=== PATIENT | female | born 1955 | race American Indian/Alaskan Native ===

== ENCOUNTER 2022-03-19 07:55 | Day surgery (SDC) | payer MEDICARE ==
[~2022-03-19 07:55] MED LIST: SODIUM CHLORIDE 0.9% 1000 ML 1,000 ML IV SCH
[2022-03-19] MEDS ORDERED: propofoL 200 MG/20 ML VIAL IV ONE (09:09)
[2022-03-19] MEDS ORDERED: DEXTROSE 50% IN WATER (25GM) 50 ML SYRINGE IV ONE (10:13)
--- NOTE | 2022-03-19 10:17 | Anesthesia Day of Surgery ---
Anesthesia Day of Surgery - Day of Surgery Patient Examined: Yes Patient H&P Reviewed: Yes Patient is NPO: Yes
--- NOTE | 2022-03-19 10:18 | Anesthesia Consultation ---
Anesthesia Consult and Med Hx Date of service: 03/19/22 - Airway Anesthetic Teeth Evaluation: Good ROM Head & Neck: Adequate Mental/Hyoid Distance: Adequate Mallampati Class: Class II Intubation Access Assessment: Good - Pre-Operative Health Status ASA Pre-Surgery Classification: ASA3 Proposed Anesthetic Plan: MAC - Pulmonary Hx Smoking: No Hx Asthma: No Hx Sleep Apnea: No - Cardiovascular System Hx Hypertension: Yes - Central Nervous System Hx Seizures: No CVA: No Hx Psychiatric Problems: Yes (Anxiety and Depression) - Gastrointestinal Hx Gastroesophageal Reflux Disease: Yes (S/P Gastric bypass) - Endocrine Hx Renal Disease: No Hx Liver Disease: No Hx Non-Insulin Dependent Diabetes: Yes (FBS 69) Hx Thyroid Disease: Yes Hx Hypothyroidism: Yes Hx Hyperthyroidism: Yes - Hematic Hx Anemia: No Hx Sickle Cell Disease: No - Other Systems Hx Alcohol Use: Yes (Occasionally) Hx Substance Use: No Hx Cancer: No Hx Obesity: Yes
--- NOTE | 2022-03-19 11:12 | Procedure Note ---
Date of procedure: 03/19/22 Pre-op diagnosis: Melena/ H/O Lap Band (Gastric Bypass)/ F/H/O Cancer Post-op diagnosis: other (Mild to Moderate Erosive Esophagitis/ R/O Eosinophilic Esophagitis/ S/P Lap Band/ Gastritis/ No active Upper or Lower GI Bleeding/ R/O Microscopic Colitis/ R/O Ileitis/ Mild to Moderate Internal Hemorrhois/ No Colon Polyps or diverticular Disease noted) Procedure: EGD with Biopsy/ Colonoscopy with Biopsy Anesthesia: [facility] [place] Surgeon: DENISSE HERNANDEZ Estimated blood loss: minimal Pathology: list Specimen disposition: to lab Condition: stable Disposition: same day (Treat with PPI and OTC Probiotic. Avoid aspirin and NSAID for 5 days; othewise resume previous medication and F/U in 1 to 2 weeks ([phone]).)
--- NOTE | 2022-03-19 11:22 | Operative Report ---
DATE OF SURGERY: 03/19/2022 PROCEDURE PERFORMED: EGD with biopsy. INDICATIONS: This is a 66-year-old -[place] female with an underlying history of diabetes mellitus and hypertension, family history of cancer. The patient had noticed some melena. She has a prior history of status post lap band. EGD was done to make sure there was not any significant upper gastrointestinal pathology present. DESCRIPTION OF PROCEDURE: Procedure was done after getting informed consent with MAC anesthesia, the instrument was passed through the hypopharynx into the esophagus, which showed some [id number] distal erosive esophagitis. Photodocumentation and biopsy was done from the distal esophagus to assess for the severity of the erosive esophagitis. The mucosa proximal to it had a cobblestone appearance, which was slightly odd. Biopsy was done to rule out for possible eosinophilic esophagitis. The stomach showed presence of the lap band. The scope could be passed through the area of the lap band and into the gastric antrum, which showed gastritis. Pylorus was patent. Duodenum in the first and second portion appeared normal. Biopsy was also done from the gastric body to rule out for H. pylori and atrophic gastritis with minimal bleeding. There was no evidence of any active upper gastrointestinal bleeding noted. There were no peptic ulcer disease noted. ASSESSMENT: History of melena, no active upper gastrointestinal bleeding noted, status post lap band or gastric bypass, [id number] erosive esophagitis, rule out eosinophilic esophagitis and gastritis. PLAN: To await for the biopsy results, have the patient avoid aspirin and aspirin-related products for the next 5 days. Treat the patient with proton pump inhibitor. A colonoscopy is to be done for further assessment. The patient will be asked to follow up in the office in 1-2 weeks' time. Procedure was done in the GI lab with assistance of the GI lab team, which included the GI nurse, field technical specialist and with the assistance of anesthesia. TID: [id number] RECEIPT: [id number] ETHEL/MICHEAL
--- NOTE | 2022-03-19 11:35 | Operative Report ---
DATE OF SURGERY: 03/19/2022 PROCEDURE: Colonoscopy. INDICATIONS: A 66-year-old -[place] female with an underlying history of diabetes mellitus, hypertension and family history of cancer. The patient had complained of melena. EGD did not show any significant upper GI source of bleeding. She had some gastritis and moderate esophagitis and status post lap band as well as biopsy done to rule out for eosinophilic esophagitis. DESCRIPTION OF PROCEDURE: Colonoscopy was done after getting informed consent with MAC anesthesia. Initial rectal examination was unremarkable. The instrument was passed through the rectum onto the cecum, which was identified by the ileocecal valve and appendiceal orifice. Visualization was fair to good. The terminal ileum was intubated, showed normal mucosa. Biopsy was done to rule out for possible ileitis. Cecum, ascending colon, transverse colon, descending colon, and sigmoid likewise showed normal mucosa. Random biopsies were done to rule out for possible microscopic colitis. The rectum showed mild to moderate internal hemorrhoid on the retroverted view. There were no colon polyps or diverticular disease noted. ASSESSMENT: History of melena, no active of lower gastrointestinal bleeding noted. No colon polyps. No diverticular disease, rule out microscopic colitis, rule out ileitis, mild to moderate internal hemorrhoid. PLAN: To treat the patient with PPI because of the EGD findings of esophagitis and gastritis. Encouraged the patient to take [id number] hemorrhoidal medications. Avoid aspirin and aspirin-related products for the next few days, otherwise resume previous medication. Follow up in the office in 1-2 weeks' time. Procedure was done in the GI lab with assistance of the GI lab team, which included the GI nurse, process mold technician and with assistance of anesthesia. TID: [id number] RECEIPT: [id number] ETHEL/MICHEAL
[2022-03-19 14:54] VITALS: BP 162/82
--- NOTE | 2022-03-19 17:27 | Post Anesthesia Evaluation ---
- Post Anesthesia Evaluation Patient Participated: Yes Airway Patent: Yes Stable Respiratory Function: Yes Nausea/Vomiting: No Temp > 96.8F: Yes Pain Manageable: Yes Adequeate Hydration: Yes Anesthesia Complications: No Block Receding Appropriately: Not Applicable Patient on Ventilator: No
== END 2022-03-19 11:35 | disposition home or self-care (01) ==
LOC: GIO 07:55
DX: K92.1 Melena (principal); D50.8 Other iron deficiency anemias; K64.8 Other hemorrhoids; K29.70 Gastritis, unspecified, without bleeding; K21.00 Gastro-esophageal reflux disease with esophagitis, without bleeding; I10 Essential (primary) hypertension; E66.9 Obesity, unspecified; E11.9 Type 2 diabetes mellitus without complications; E03.9 Hypothyroidism, unspecified; Z72.89 Other problems related to lifestyle; Z79.899 Other long term (current) drug therapy; Z79.84 Long term (current) use of oral hypoglycemic drugs; Z98.84 Bariatric surgery status; Z68.34 Body mass index [BMI] 34.0-34.9, adult; Z98.890 Other specified postprocedural states
CPT/HCPCS: 43239; 45380; 82962; 88305; J2704; J3490; J7030